=== PATIENT | male | born 1995 | race African-American/Black ===

== ENCOUNTER 2020-01-26 07:27 | Emergency (ER) | payer SELFPAY ==
[~2020-01-26] VITALS: Ht 182.9 cm; Wt 59.0 kg
[2020-01-26 07:50] VITALS: BP 125/79
[2020-01-26] MEDS ORDERED: PREDNISONE 20MG TABLET PO STA (08:05)
[2020-01-26] MEDS ORDERED: IPRATROPIUM/ALBUTEROL 0.5-3(2.5)MG/3ML NEB HHN ONE (08:15)
[2020-01-26] MEDS ORDERED: ACETAMINOPHEN 325MG TABLET PO ONE (08:15)
== END 2020-01-26 09:11 | disposition home or self-care (01) ==
LOC: ER 07:27
DX: R05 Cough (principal); J45.909 Unspecified asthma, uncomplicated; Z88.3 Allergy status to other anti-infective agents; Z88.0 Allergy status to penicillin
CPT/HCPCS: 71045; 94640; 99283; J7512; J7610; Z7610